=== PATIENT | male | born 2000 | race Caucasian/White ===

== ENCOUNTER 2025-07-07 11:34 | Emergency (ER) | payer SELFPAY ==
--- OUTSIDE RECORDS SUMMARY | 2025-07-07 11:43 | XMS_ITS | Clinical Summary ---
Author Organization [facility] Address [address] [place] [address] Care Team Providers Care Head Cd Reactor Operator Name Role Phone Unavailable Primary Care Provider Unavailabl e Social History Tobacco Use Types Packs/Day Years Used Date Smoking Tobacco: Never Assessed Sex and Gender Information Value Date Recorded Sex Assigned at Not on file Legal Sex Male 8:17 AM PDT Gender Identity Not on file Sexual Orientation Not on file Last Filed Vital Signs Vital Sign Reading Time Taken Comments Blood Pressure 126/85 02/28/2021 1:25 AM PDT Pulse 88 02/28/2021 1:25 AM PDT Temperature 36.4 C (97.5 F) 02/28/2021 1:25 AM PDT Respiratory Rate 16 02/28/2021 1:25 AM PDT Oxygen Saturation 99% 02/28/2021 1:25 AM PDT Inhaled Oxygen Concentration - - Weight 53.5 kg (117 lb 15.1 oz) 02/28/2021 1:47 AM PDT Height - - Body Mass Index - - Plan of Treatment Not on file
[2025-07-07 12:10] VITALS: BP 120/74; RESP 18; TEMP 36.8; O2SAT 100; BMI 19.3
[2025-07-07] MEDS: KETOROLAC 30 MG/ML VIAL 15 MG IV (12:34)
[2025-07-07] MEDS: ONDANSETRON 4 MG/2 ML INJ IV (12:35)
--- NOTE | 2025-07-07 12:47 | EKG_ITS ---
[address] [address] Test Date: 2025-07-07 Pat Name: Gordon Montero Department: Room: Gender: Male Senior Account Director: RALPH : 2000 Requested By: Order Number: [id number] Reading MD: Vicente Rucker Measurements Intervals [place] Rate: 63 P: 73 MO: 138 QRS: 76 QRSD: 84 T: 74 QT: 380 QTc: 388 Interpretive Statements Normal sinus rhythm Electronically Signed On 07-08-2025 15:04:45 PST by Vicente Rucker
[2025-07-07 12:58] LABS: Add Manual Diff / Slide Review NO; Hematocrit 45.3 % (41-53); Hemoglobin 15.4 g/dL (13.5-17.5); Lymphocytes Absolute Auto 2400 /uL (1100-4500); Mean Corpuscular HGB Conc 34.1 % (30-36); Mean Corpuscular Hemoglobin 29.4 PG (26-34); Mean Corpuscular Volume 86.2 fL (80-100); Platelet Count 340 X10^3/uL (150-400)
[2025-07-07 13:04] LABS: Alanine Aminotransferase 41 IU/L (<50); Albumin 5.0 g/dL (3.5-5.0); Albumin Globulin Ratio 1.6 (1.0-2.8); Alkaline Phosphatase 73 U/L (38-126); Blood Urea Nitrogen 12 mg/dL (9-20); Calcium 9.2 mg/dL (8.4-10.2); Carbon Dioxide 23 mmol/L (22-32); Chloride 105 mmol/L (98-107); Estimated Glomerular Filt Rate > 60 mL/min (>60); Globulin 3.2 g/dL (1.7-4.1); Glucose 132 mg/dL (70-99); HEMOLYSIS 32 (0-50); Lipase 62 U/L (23-300); Potassium 3.8 mmol/L (3.4-5.1); Sodium 143 mmol/L (137-145); Total Protein 8.2 g/dL (6.3-8.2)
--- NOTE | 2025-07-07 13:04 | ED.ABDPAIN ---
HPI - Abdominal Pain General Chief Complaint: Abdominal Pain Stated Complaint: Sudden Lower left side abdominal pain Time Seen by Provider: 07/07/25 13:02 Source: patient Mode of arrival: Family Vehicle History of Present Illness HPI narrative: Mr. Montero is a pleasant 24-year-old male with no reported past medical history who presents to the emergency department for acute left-sided flank pain that started 9:30 a.m. this morning. Patient states the pain came on suddenly and he described it as sharp and stabbing in his left back radiating to his left lower quadrant of his abdomen. The pain persisted despite taking Tylenol and he reports writhing in pain until he received Toradol in the ED, on my time of examination he is pain-free. States that when he provided a urine sample in the ED it did burn. He was having associated nausea that has resolved. Denies fevers, chills, flu-like symptoms, vomiting, diarrhea, constipation. Related Data Previous Rx's ?Medication ?Instructions ?Recorded ketorolac 10 mg tablet 10 mg PO Q8H PRN pain 5 days #14 07/07/25 tabs ondansetron 4 mg disintegrating 4 mg PO Q8H PRN nausea and 07/07/25 tablet vomiting #15 tabs tamsulosin 0.4 mg capsule 0.4 mg PO DAILY #7 caps 07/07/25 Allergies Allergy/AdvReac Type Severity Reaction Status Date / Time No Known Drug Allergies Allergy Verified 07/07/25 12:10 Review of Systems Review of Systems ROS Unobtainable: All systems reviewed & are unremarkable except as noted in HPI and below Patient History Social History Smoking Status: Never smoker Smoking Status: Never smoker Exam Narrative Exam Narrative: GENERAL: 24 year old patient appears stated age. Well-developed patient, in no acute distress. HEAD: Atraumatic. Normocephalic. EYES:No scleral icterus. No injection or drainage. NECK: Trachea midline. Cervical ROM intact. CARDIOVASCULAR: Regular rate and rhythm. RESPIRATORY: ?Nonlabored respirations. ?Speaking in clear, full sentences. ?Clear to auscultation. Breath sounds equal bilaterally. No wheezes, rales, or rhonchi. ? GASTROINTESTINAL: Abdomen soft, non-tender, nondistended. BACK: No CVA tenderness BL. No rashes. NEURO: AOx3. ?Clear speech. ?Moves all 4 extremities appropriately. SKIN: No rash or erythema of visible areas Initial Vital Signs Initial Vital Signs: Vital Signs Temperature 98.3 F 07/07/25 12:10 Respiratory Rate 18 07/07/25 12:10 Blood Pressure 120/74 07/07/25 12:10 Pulse Oximetry 100 07/07/25 12:10 Oxygen Delivery Method Room Air 07/07/25 12:10 Course Orders Ordered: ED Orders 07/07/25 12:26 Complete Blood Count AUTO DIFF Stat Comprehensive Metabolic Panel Stat Lipase Stat 07/07/25 12:47 EKG-12 Lead Routine 07/07/25 13:00 Urine Microscopic Stat 07/07/25 13:12 XR KUB Stat Discontinued Medications Ketorolac Tromethamine (Ketorolac 30 Mg/Ml Vial) 15 mg IV NOW ONE Stop: 07/07/25 12:25 Last Admin: 07/07/25 12:34 Dose: 15 mg Documented By: RB Ondansetron HCl (Ondansetron 4 Mg/2 Ml Inj) 4 mg IV NOW PRN PRN Reason: Nausea And Vomiting Last Admin: 07/07/25 12:35 Dose: 4 mg Documented By: RB Ondansetron HCl (Ondansetron 4 Mg Odt) 4 mg PO NOW PRN PRN Reason: Nausea And Vomiting Vital Signs Vital signs: Vital Signs - 8 hr 07/07/25 12:10 07/07/25 14:27 Temperature 98.3 F Pulse Rate 115 H Respiratory Rate 18 18 Blood Pressure 120/74 111/72 Pulse Oximetry 100 98 Oxygen Delivery Method Room Air Room Air MDM - Abdominal Pain Medical Records Medical records narrative: None Lab Data 07/07/25 12:26 07/07/25 12:26 Labs: Lab Results 07/07/25 07/07/25 Range/Units 12: 13:00 WBC 7.3 (4.5-11.0) X10^3/uL RBC 5.26 (4.5-5.9) X10^6/uL Hgb 15.4 (13.5-17.5) g/dL Hct 45.3 (41-53) % MCV 86.2 (80-100) fL MCH 29.4 (26-34) PG MCHC 34.1 (30-36) % RDW 12.7 (11.6-14.8) % Plt Count 340 (150-400) X10^3/uL Neut % (Auto) 60.3 (50-75) % Lymph % (Auto) 32.3 (25-40) % [place] % (Auto) 5.8 (3-14) % Eos % (Auto) 1.0 L (2-4) % Baso % (Auto) 0.6 (0-2) % Neut # (Auto) 4400 (5130-7338) /uL Lymph # (Auto) 2400 (9657-9887) /uL [place] # (Auto) 400 (0-900) /uL Eos # (Auto) 100 (0-450) /uL Baso # (Auto) 0 (0-100) /uL Sodium 143 (137-145) mmol/L Potassium 3.8 (3.4-5.1) mmol/L Chloride 105 (98-107) mmol/L Carbon Dioxide 23 (22-32) mmol/L BUN 12 (9-20) mg/dL Creatinine 0.85 (0.66-1.25) mg/dL Estimated GFR > 60 (>60) mL/min BUN/Creatinine Ratio 14.1 (6-22) Glucose 132 H (70-99) mg/dL Calcium 9.2 (8.4-10.2) mg/dL Total Bilirubin 0.4 (0.2-1.3) mg/dL AST 40 (17-59) IU/L ALT 41 (<50) IU/L Alkaline Phosphatase 73 (38-126) U/L Total Protein 8.2 (6.3-8.2) g/dL Albumin 5.0 (3.5-5.0) g/dL Globulin 3.2 (1.7-4.1) g/dL Albumin/Globulin Ratio 1.6 (1.0-2.8) Lipase 62 (23-300) U/L Urine RBC 0-1/hpf (0-5/HPF) Urine WBC 0-1/hpf (0-5/HPF) Ur Squamous Epith Cells None seen (0-5/HPF) Urine Bacteria None seen (None) Ur Culture Indicated? Cult not indicated Vol Urine Centrifuged 10ml (spun) Point of care testing: Urine Dip Bedside Urine Glucose Negative Bedside Urine Bilirubin - Negative Bedside Urine Ketone - Negative Urine Specific [place] 1.025 Bedside Urine Occult Blood + Bedside Urine pH 6.0 Bedside Urine Protein - Negative Bedside Urine Urobilinogen - Negative Bedside Urine Nitrite - Negative Bedside Urine Leukocytes - Negative Esterase Imaging Data Abdominal x-ray: Radiologist's Impression: PROCEDURE: XR KUB INDICATIONS: L FLANK PAIN ; concern stone TECHNIQUE: One view of the abdomen acquired. COMPARISON: None. FINDINGS AND IMPRESSION: No calcified stone identified by radiograph. Consider CT KUB if there is further clinical concern. Moderate to large colonic fecal loading. No specific signs for obstruction. Dictated by: Reji Glynn M.D. on 07/07/2025 at 14:01 Approved by: Reji Glynn M.D. on 07/07/2025 at 14:02 [facility] Narrative Medical decision making narrative: 24-year-old male with no reported past medical history who presents to the emergency department for acute left-sided flank pain that started 9:30 a.m. this morning. Differential diagnosis includes but isn't limited to nephrolithiasis, ureterolithiasis, renal colic, pyelonephritis, muscle strain, UTI, pancreatitis, etc. Patient received IV Toradol and Zofran prior to my examination. Reports that he was riding in pain however he is pain-free after receiving these medications. On my physical exam he is in no acute distress, nontoxic-appearing, all vital signs within normal limits. Abdomen is soft and nontender no CVA tenderness. He was having severe stabbing left flank pain that came on suddenly and dysuria. History is concerning for nephrolithiasis. Patient is self pay and declined CT scan at this time. Therefore we will proceed with x-ray KUB, lab work, urinalysis. X-ray KUB reveals no stone, moderate fecal loading. Urinalysis reveals trace blood. Labs overall within normal limits with normal WBC count, renal function. Patient remained pain-free and I did recommend CT KUB for further evaluation however he declines at this time, therefore we will treat empirically as possible stone with Flomax, Toradol, Zofran. He was provided with a urine strainer and I advised him to follow up with Urology if he does pass a stone. We discussed very strict ER return precautions and he understands that if he does have worsening symptoms he will require CT scan for further diagnosis. Patient verbalized understanding of all information agreeable to plan, pain free, tolerating p.o., stable for discharge home. Patient urinated in the bathroom in the lobby after discharge actually passed his kidney stone. Came in to tell me. Discussed discharge plan all questions answered stable for discharge home. Discharge Plan Departure Patient Disposition: Home Clinical Impression: Flank pain, left side Instructions: DI for Kidney Stones Activity Restrictions/Additional Instructions: Dear Mr. Montero, Thank you for coming to the emergency department. Today you were evaluated for left-sided pain and some discomfort with urination. As we discussed I do suspect that you may have had a kidney stone however without a CT scan we can not confirm this. You have been prescribed pain medication, nausea medication and a medication that will help pass a possible kidney stone. Please use these medications as directed. You may also use Tylenol with these medications if needed for pain. Please return to the ER immediately if you develop new or worsening symptoms, fever, difficulty urinating, severe abdominal pain or any other concerns. Otherwise please follow up with your primary care doctor or Urology as needed. You do have a moderate amount of stool in your colon and I do recommend using MiraLax and other stool softener as well. Please follow up with your primary care doctor within the next 2-3 days for ER follow-up. (If you do not have a PCP you can call [phone]. ?to schedule an appointment with an [facility] Primary Care Provider) IF YOU DEVELOP ANY NEW OR WORSENING SYMPTOMS, RETURN TO THE ER! Please read the attached instructions, they highlight more specific treatments and interventions for you at home. Thank you for letting me participate in your care, Karmen Smith PA-C Prescriptions: New tamsulosin 0.4 mg capsule 0.4 mg PO DAILY Qty: 7 0RF ketorolac 10 mg tablet 10 mg PO Q8H PRN (Reason: pain) 5 Days Qty: 14 0RF Rx Instructions: Take with food ondansetron 4 mg tablet,disintegrating 4 mg PO Q8H PRN (Reason: nausea and vomiting) Qty: 15 0RF Referrals: Atilio Ballard DO [Physician, Urology] Referral Note: Kidney Stone Stand Alone Forms: Patient Portal/API
--- NOTE | 2025-07-07 13:12 | DI.RAD.S_ITS ---
PROCEDURE: XR KUB INDICATIONS: L FLANK PAIN ; concern stone TECHNIQUE: One view of the abdomen acquired. COMPARISON: None. FINDINGS AND IMPRESSION: No calcified stone identified by radiograph. Consider CT KUB if there is further clinical concern. Moderate to large colonic fecal loading. No specific signs for obstruction. Dictated by: Reji Glynn M.D. on 07/07/2025 at 14:01 Approved by: Reji Glynn M.D. on 07/07/2025 at 14:02
[2025-07-07 13:21] LABS: Culture Indicated Urine Cult Not Indicated
[2025-07-07 14:27] VITALS: BP 111/72; PULSE 115; RESP 18; O2SAT 98
--- NOTE | 2025-07-07 14:27 | PC.NURSE ---
Patient evaluated, treated, and discharged by provider prior to nursing assessment.
== END 2025-07-07 14:28 | disposition home or self-care (01) ==
PROVIDERS: Emergency Medicine; Emergency Provider Physician Assistant
DX: R10.A2 Flank pain, left side (principal); R10.32 Left lower quadrant pain; R11.0 Nausea
CPT/HCPCS: 74018; 80053; 81003; 81015; 83690; 85025; 93005; 96374; 96375; 99283; J1885; J2405